=== PATIENT | female | born 1970 | race Caucasian/White ===

== ENCOUNTER → 2021-10-26 01:00 | Outpatient (CLI) | payer OTHER, SELFPAY ==
[2021-10-26 21:02] LABS: SARS-CoV-2 RNA PCR Positive
== END ==
PROVIDERS: PCP Family Medicine; Visit Provider Physician Assistant
DX: U07.1 COVID-19 (principal)
CPT/HCPCS: C9803; U0003; U0005

== ENCOUNTER 2021-10-27 15:38 | Emergency (ER) | payer SELFPAY ==
--- NOTE | 2021-10-27 16:07 | PC.NURSE ---
pt to the intake desk and states Im not going to stay . pt ambulated to the exit without difficulty
== END 2021-10-27 16:07 | disposition left against medical advice (07) ==
LOC: ANHED 16:21
PROVIDERS: PCP Family Medicine
DX: R06.02 Shortness of breath (principal)
CPT/HCPCS: 99199

== ENCOUNTER 2021-10-29 07:40 | Outpatient (RCR) | payer OTHER, SELFPAY ==
[2021-10-29 11:45] VITALS: BP 141/73; PULSE 70; RESP 20; TEMP 35.9; O2SAT 100
[2021-10-29] MEDS: diphenhydrAMINE HCl CAP 25 MG CAPSULE PO (11:53)
[2021-10-29] MEDS: FAMOTIDINE 20 MG TABLET PO (11:53)
[2021-10-29] MEDS: ACETAMINOPHEN 325 MG TABLET 650 MG PO (11:53)
[2021-10-29 13:13] VITALS: BP 130/74; PULSE 66; O2SAT 99
== END 2021-10-29 17:00 ==
LOC: AMCINF 07:40
PROVIDERS: PCP Family Medicine; Visit Provider Internal Medicine Hematology & Oncology
DX: U07.1 COVID-19 (principal); I10 Essential (primary) hypertension
CPT/HCPCS: A9270; M0245; Q0245

== ENCOUNTER 2021-11-09 14:13 | Emergency (ER) | payer OTHER, SELFPAY ==
--- NOTE | ~2021-11-09 | XR_ITS ---
EXAMINATION: XR chest 1V portable DATE: 11/09/2021 15:31 INDICATION: Shortness of breath. TECHNIQUE: A single frontal view of the chest was obtained. COMPARISON: Chest 2 views 04/06/2019 FINDINGS: There are airspace opacities in the lower lung zones. No pleural effusion or pneumothorax. The heart size is normal. IMPRESSION: 1. Airspace opacities in the lower lung zones similar to 04/06/2019, consistent with atelectasis/scarr ing versus pneumonia. Reviewed, dictated and finalized at location A. CHOOL HEAD TEACHER IMPRESSION: 1. Airspace opacities in the lower lung zones similar to 04/06/2019, consistent with atelectasis/scarring versus pneumonia.
[2021-11-09 14:19] VITALS: BP 147/82; PULSE 95; RESP 20; TEMP 36.3; O2SAT 100
[2021-11-09 14:50] VITALS: BP 138/80; PULSE 77; RESP 16; O2SAT 98
--- NOTE | 2021-11-09 15:29 | ED.GENADULT ---
HPI - General Adult General Chief complaint: Shortness of Breath/Dyspnea Stated complaint: sob, covid + 3 weeks ago Time Seen by Provider: 11/09/21 14:54 Source: patient and RN notes reviewed Limitations: no limitations History of Present Illness HPI narrative: 51-year-old female 3 weeks out from her Covid infection presents to the emergency department complaining of cough, shortness of breath, nausea vomiting and diarrhea. Patient states she had her Covid diagnosis approximately 3 weeks ago. Patient states after the first week she did have some minor improvement but states over the last 2 weeks she has had persistent and possibly worsening symptoms. She does complain of sinus pressure and headache. Patient does have nasal congestion. Patient also does complain of some shortness of breath today. Patient also does complain of some lower back pain worsened with movement. Patient does have nausea vomiting diarrhea but denies any associate abdominal pain. Patient denies any pain with urination. Patient denies any falls or injuries. Denies any frequent cough. Patient also denies any associated chest pain. Related Data Home Medications Medication Instructions Recorded Confirmed estradiol 2 mg 11/09/21 sertraline 100 mg DAILY 11/09/21 11/09/21 zolpidem 10 mg HS 11/09/21 Allergies Allergy/AdvReac Type Severity Reaction Status Date / Time No Known Allergies Allergy Verified 11/09/21 14:51 Review of Systems Review of Systems: CONSTITUTIONAL: Denies fever, chills, or sweats. EYES: Denies visual changes, redness, or discharge. ENT: Sinus pressure, nasal congestion and rhinorrhea CARDIOVASCULAR: Denies chest pain, palpitations, or edema. RESPIRATORY: Denies cough but did have some shortness of breath today.. GASTROINTESTINAL: Denies abdominal pain but does report some nausea vomiting and diarrhea GENITOURINARY: Denies dysuria or hematuria. SKIN: Denies rash or itching. MUSCULOSKELETAL: Lower back pain worsened with movement.. NEUROLOGIC: Denies headache, numbness, or weakness. Exam Narrative: APPEARANCE: Well appearing, no pain, no distress, well-nourished. HEAD: normocephalic, atraumatic. EYES: PERRLA/EOMI, conjunctivae clear. NOSE: Nasal and sinus congestion NECK: Supple. No adenopathy, no masses. RESPIRATORY: Airway patent, respirations nonlabored. Clear to auscultation bilaterally, no rales, rhonchi, wheezing. CARDIOVASCULAR: Regular rate and rhythm without murmurs rubs or gallops. ABDOMINAL: Soft, nontender, nondistended, normal bowel sounds, no CVA tenderness to palpation MUSCULOSKELETAL: Moves all extremities. Lower back tenderness to palpation. No step-offs or deformity. NEURO: Alert. Cranial nerves II through XII intact. SKIN: Warm, dry. Normal Color Course Course Emergency Course: Patient was updated on the results of her work-up including labs and imaging. All questions and concerns were addressed. Patient did feel improved with treatment in the emergency department. Patient was started on Augmentin for possible sinusitis. Vital Signs Vital signs: Vital Signs Temperature 97.4 F L 11/09/21 14:19 Pulse Rate 95 11/09/21 14:19 Respiratory Rate 20 11/09/21 14:19 Blood Pressure 147/82 H 11/09/21 14:19 Pulse Oximetry 100 11/09/21 14:19 Temperature 97.4 F L 11/09/21 14:19 Pulse Rate 84 11/09/21 16:46 Respiratory Rate 18 11/09/21 16:46 Blood Pressure 140/69 11/09/21 16:46 Pulse Oximetry 98 11/09/21 16:46 Medical Decision Making Vital Signs Vital Signs: Vital Signs Temperature 97.4 F L 11/09/21 14:19 Pulse Rate 95 11/09/21 14:19 Respiratory Rate 20 11/09/21 14:19 Blood Pressure 147/82 H 11/09/21 14:19 Pulse Oximetry 100 11/09/21 14:19 Temperature 97.4 F L 11/09/21 14:19 Pulse Rate 84 11/09/21 16:46 Respiratory Rate 18 11/09/21 16:46 Blood Pressure 140/69 11/09/21 16:46 Pulse Oximetry 98 11/09/21 16:46 Lab Data Lab results reviewed: Yes
[2021-11-09 16:19] LABS: Add Urine Microscopic? YES; Appearance Urine Clear (Clear); Bilirubin Urine Negative (Negative); Blood Urine Negative (Negative); Color Urine Yellow (Yellow); Glucose Urine UA Negative (Negative); Ketones Urine Negative (Negative); Leukocyte Esterase Ur Negative LEU/UL (Negative); Mucus Urine Rare /lpf; Nitrate Urine Negative (Negative); Protein Urine Negative (Negative); RBC Urine 0-2 /hpf (0-2); Specific Grav Ur 1.014 (1.001-1.035); Squamous Epithelial Cell Urine Occasional /hpf (Few); Urobilinogen Urine Negative mg/dL (<2.0); WBC Urine 0-3 /hpf
[2021-11-09] MEDS: AMOXICILLIN/CLAVULANATE K 875-125 MG TAB 1 TABLET PO (16:36)
[2021-11-09 16:46] VITALS: BP 140/69; PULSE 84; RESP 18; O2SAT 98
== END 2021-11-09 16:47 | disposition home or self-care (01) ==
PROVIDERS: Emergency Provider Emergency Medicine; PCP Family Medicine
DX: U07.1 COVID-19 (principal); R06.00 Dyspnea, unspecified; R09.81 Nasal congestion; M54.50 Low back pain, unspecified; R91.8 Other nonspecific abnormal finding of lung field
CPT/HCPCS: 71045; 81001; 99283; A9270

== ENCOUNTER → 2021-11-16 11:26 | Outpatient (CLI) | payer OTHER, SELFPAY ==
--- NOTE | ~2021-11-16 | XR_ITS ---
XR lumbar spine 2-3V DATE: 11/16/2021 11:50 INDICATION: Low back pain TECHNIQUE: AP, lateral, coned lateral lumbosacral views COMPARISON: None FINDINGS: There is diffuse osteopenia. Normal alignment of the lumbar spine. No fracture or bone destruction is evident. The included lower thoracic and lumbar pedicles are intact. There is severe degenerative disc disease at L5-S1. The lumbar interspaces otherwise are normally pre served. The sacroiliac joints are intact. Status post cholecystectomy IMPRESSION: Severe degenerative disc disease at L5-S1 Osteopenia Reviewed, dictated and finalized at location B. T ELECTRICIAN
== END ==
PROVIDERS: Visit Provider Physician Assistant
DX: M51.37 Other intervertebral disc degeneration, lumbosacral region (principal); M85.88 Other specified disorders of bone density and structure, other site
CPT/HCPCS: 72100

== ENCOUNTER 2021-11-29 15:19 | Outpatient (CLI) | payer OTHER, SELFPAY ==
--- NOTE | ~2021-11-29 | MR_ITS ---
EXAMINATION: MR lumbar spine wo con DATE: 11/29/2021 16:01 INDICATION: Lumbar spine disc degeneration. TECHNIQUE: Magnetic resonance imaging (MRI) of the lumbar spine was performed without intravenous con trast. Sequences included sagittal T2-weighted FSE, sagittal T2-weighted FS FSE, sagittal T1-weighted FSE, and axial T2-weighted FSE. COMPARISON: None FINDINGS: Alignment is normal. Vertebral body heights are normal. Moderate disc height loss with fibrofatty deg enerative endplate changes at L5-S1. Disc desiccation without disc height loss at L3-L4 and L4-L5. Ma rrow signal is otherwise normal. The conus medullaris terminates at L2. There is normal signal in the caudal spinal cord. Paravertebral soft tissues are unremarkable. The following disc levels are speci fically discussed: T12-L1: The disc does not extend beyond the endplate margin. There is mild bilateral facet joint oste oarthritis. There is no neural foraminal stenosis. There is no central canal stenosis. L1-L2: The disc does not extend beyond the endplate margin. There is mild bilateral facet joint osteo arthritis. There is no neural foraminal stenosis. There is no central canal stenosis. L2-L3: The disc does not extend beyond the endplate margin. There is mild bilateral facet joint osteo arthritis. There is no neural foraminal stenosis. There is no central canal stenosis. L3-L4: Disc is minimally bulging. There is moderate bilateral facet joint osteoarthritis. There is mi nimal bilateral neural foraminal stenosis. There is no central canal stenosis. L4-L5: Disc is mildly bulging. There is a 9 x 7 x 5 mm left paracentral extruded versus sequestered d isc fragment extending caudally from the disc space. There is moderate left and severe right facet tanvir int osteoarthritis. There is mild right and minimal left neural foraminal stenosis. There is mild ottoniel tral canal stenosis. There is also mild narrowing of the left lateral recess resulting from the extru ded versus sequestered disc fragment. L5-S1: Disc is mildly bulging. There is moderate left and severe right facet joint osteoarthritis. Th ere is mild bilateral neural foraminal stenosis. There is no central canal stenosis. IMPRESSION: 1. Moderate mid to lower lumbar spondylosis including a left paracentral extruded versus sequestered disc fragment just inferior to the L4-L5 disc space. Reviewed, dictated and finalized at location A. C.O.D. BILLER IMPRESSION: 1. Moderate mid to lower lumbar spondylosis including a left paracentral extrud ed versus sequestered disc fragment just inferior to the L4-L5 disc space.
== END 2021-11-29 15:20 ==
LOC: MICIMG 15:19
PROVIDERS: PCP Family Medicine; Visit Provider Family Medicine
DX: M51.36 Other intervertebral disc degeneration, lumbar region (principal); M47.896 Other spondylosis, lumbar region
CPT/HCPCS: 72148

== ENCOUNTER → 2021-12-13 12:22 | Outpatient (CLI) | payer OTHER, SELFPAY ==
--- NOTE | ~2021-12-13 | XR_ITS ---
XR knee LT min 4V DATE: 12/13/2021 12:38 INDICATION: Left knee pain TECHNIQUE: Standing AP, PA and lateral views. [place] view. COMPARISON: None FINDINGS: No fracture or dislocation or joint effusion. No periosteal reaction or bone destruction, r adiopaque intra-articular loose body or chondrocalcinosis. There is slight periarticular spurring of the patella and lateral femoral condyle, mild loss of media l compartment joint space. IMPRESSION: Mild osteoarthritis Reviewed, dictated and finalized at location A. CARDIOGRAPH TECH IMPRESSION: Mild osteoarthritis
== END ==
PROVIDERS: Visit Provider Pain Medicine Pain Medicine
DX: M17.12 Unilateral primary osteoarthritis, left knee (principal)
CPT/HCPCS: 73564

== ENCOUNTER 2023-09-28 20:15 | Emergency (ER) | payer OTHER, SELFPAY ==
[2023-09-28 20:21] VITALS: BP 137/88; PULSE 87; RESP 18; TEMP 36.3; O2SAT 98
== END 2023-09-28 21:25 | disposition left against medical advice (07) ==
LOC: ANHED 20:48
PROVIDERS: PCP Family Medicine
DX: R51.9 Headache, unspecified (principal)
CPT/HCPCS: 99199

== ENCOUNTER 2024-05-02 11:04 | Outpatient (CLI) | payer OTHER, SELFPAY ==
--- NOTE | ~2024-05-02 | XR_ITS ---
XR cervical spine 4-5V Ordering provider: Pritesh Carmichael MD History: . Cervical radiculopathy . Comparison: None. FINDINGS: VERTEBRAL BODIES: Normal height and alignment. No visible fracture or subluxation. The dens is intact . DISK SPACES: Narrowing of the disc C6-C7. Uncovertebral joint osteoarthritic changes at the same leve l. PARASPINOUS SOFT TISSUES: No prevertebral soft tissue swelling. IMPRESSION: No acute osseous abnormality cervical spine. Reviewed, dictated and finalized at location A.
== END 2024-05-02 11:05 ==
LOC: MICIMG 11:06
PROVIDERS: PCP Family Medicine; Visit Provider Pain Medicine Pain Medicine
DX: M54.12 Radiculopathy, cervical region (principal)
CPT/HCPCS: 72050

== ENCOUNTER 2024-05-14 13:26 | Outpatient (CLI) | payer OTHER, SELFPAY ==
--- NOTE | ~2024-05-14 | MR_ITS ---
MR cervical spine wo con Ordering provider: Kathi Avery, [employer]-C History: 54 years Female with . Cervical radiculopathy . Comparison: None. Technique: MRI cervical spine without contrast. FINDINGS: CERVICAL SPINAL CORD/CRANIAL CERVICAL JUNCTION: Bright signal is seen on T2 weighted images at the le elvia of C5, and C6 which is suggestive of myelomalacia. CERVICAL VERTEBRAL BODIES: Normal height and alignment. Normal marrow signal. DISK SPACES: Narrowing of the disc C5-C6, C6-C7 and C6-C7. C2-C3: No stenosis. C3-C4: No stenosis. C4-C5: No stenosis. C5-C6: Mild spinal canal stenosis secondary to broad based disc bulge. Narrowing of the left foramen with root compression. C6-C7: No stenosis. C7-T1: No stenosis. VISUALIZED PARASPINOUS SOFT TISSUES: Normal. IMPRESSION: 1. No acute osseous abnormality. 2. Highly suggestive of myelomalacia at the level of C5-C6. Reviewed, dictated and finalized at location A.
== END 2024-05-14 13:27 ==
LOC: GOSHIMG 13:27
PROVIDERS: PCP Family Medicine; Visit Provider Nurse Practitioner Family
DX: M54.12 Radiculopathy, cervical region (principal)
CPT/HCPCS: 72141

== ENCOUNTER 2024-06-03 12:51 | Outpatient (CLI) | payer OTHER, SELFPAY ==
--- NOTE | ~2024-06-03 | MR_ITS ---
EXAMINATION: MR lumbar spine wo con DATE: 06/03/2024 13:23 INDICATION: Lumbar radiculopathy. Lower back pain. TECHNIQUE: Magnetic resonance imaging (MRI) of the lumbar spine was performed without intravenous con trast. Sequences included sagittal T2-weighted FSE, sagittal T2-weighted FS FSE, sagittal T1-weighted FSE, and axial T2-weighted FSE. COMPARISON: Lumbar spine MRI 11/29/2021 FINDINGS: There is 4 degrees levocurvature of lumbar spine. Vertebral body heights are normal. There is severely decreased disc height at L5-S1. The distal spinal cord signal intensity is normal. The co nus medullaris is at L1-L2. The following disc levels are specifically discussed: L1-L2: The disc does not extend beyond the endplate margin. There is mild bilateral facet joint osteo arthritis. There is no neural foraminal stenosis. There is no central canal stenosis. L2-L3: The disc does not extend beyond the endplate margin. There is mild right and moderate left fac et joint osteoarthritis. There is no neural foraminal stenosis. There is no central canal stenosis. L3-L4: There is a right foraminal protrusion. There is moderate bilateral facet joint osteoarthritis. There is mild right neural foraminal stenosis. There is no central canal stenosis. L4-L5: The disc is bulging. There is moderate bilateral facet joint osteoarthritis. There is mild beti ateral neural foraminal stenosis. There is no central canal stenosis. L5-S1: The disc is bulging and has an annular fissure. There is severe bilateral facet joint osteoart hritis. There is mild lateral neural foraminal stenosis. There is no central canal stenosis. IMPRESSION: 1. Severe lower lumbar spondylosis, stable from 11/29/2021. Reviewed, dictated and finalized at location A.
== END 2024-06-03 12:52 ==
LOC: GOSHIMG 12:53
PROVIDERS: PCP Family Medicine; Visit Provider Nurse Practitioner Family
DX: M47.26 Other spondylosis with radiculopathy, lumbar region (principal)
CPT/HCPCS: 72148

== ENCOUNTER 2024-08-28 10:11 | Emergency (ER) | payer OTHER, SELFPAY ==
[2024-08-28 10:19] VITALS: BP 134/80; PULSE 69; RESP 16; TEMP 36.5; O2SAT 99
--- NOTE | 2024-08-28 10:43 | ED_ITS ---
HPI - Headache General Chief Complaint: Headache Stated Complaint: pain on right side of head Time Seen by Provider: 08/28/24 10:43 Source: patient and RN notes reviewed Mode of arrival: ambulatory Limitations: no limitations History of Present Illness HPI Narrative: 54 y/o female with hx HTN presented for c/o right temporal headache for 6 months. Pain is also behind the right ear. States she has had workup with neurologist, pain management, MRI, chiropractor and receives injections in the cervical spine. She is due for injection in 2 weeks. Denies vision changes, pain radiating to forehead or jaw, ear pain, rash to the site, nausea or fever, numbness or tingling of the face. Pain is described as constant and ache, nothing relieves the pain. Says she started taking a steroid about 5 days ago. Related Data Home Medications Medication Instructions Recorded Confirmed cholecalciferol (vitamin D3) 25 25 mcg PO DAILY 07/01/24 07/01/24 mcg (1,000 unit) capsule Allergies Allergy/AdvReac Type Severity Reaction Status Date / Time amoxicillin [From Augmentin] AdvReac Hives Verified 08/28/24 10:27 clavulanic acid AdvReac Itching Verified 08/28/24 10:27 [From Augmentin] Review of Systems Review of Systems: CONSTITUTIONAL: Denies body aches, fever, chills, or sweats. EYES: Denies visual changes, redness, photophobia or discharge. ENT: Denies rhinorrhea, congestion, sore throat, or otalgia. CARDIOVASCULAR: Denies chest pain, palpitations, or edema. RESPIRATORY: Denies cough or dyspnea. GASTROINTESTINAL: Denies abdominal pain, nausea, vomiting, or diarrhea. SKIN: Denies rash or wounds MUSCULOSKELETAL: Denies back pain, joint pain, or myalgia. NEUROLOGIC: Endorses headache, denies numbness, tingling, weakness, dizziness All systems reviewed & are unremarkable except as noted in HPI and below PMFSH Past Medical History Medical History Anxiety Depression Essential (primary) hypertension GERD (gastroesophageal reflux disease) Mixed hyperlipidemia Nicotine dependence, cigarettes, uncomplicated Prediabetes Recurrent herpes labialis Surgical History Surgical History History of appendectomy 2005 History of section 1989 History of cholecystectomy 11/17/2015 History of endometrial ablation 2003 History of nasal surgery 2004 History of partial hysterectomy 2005 History of rectal surgery anal fissure repair 2010 History of toe surgery 2004, 2007 Family History Family History Father Diabetes mellitus Heart disease Liver cancer Mother Diabetes mellitus Hypertension Heart disease Breast cancer Depression Grandparent Heart disease Hypertension COPD (chronic obstructive pulmonary disease) Social History Social History Smoking packs per day: 1 Smoking cigarettes per day: 20.0 Smoking status: Current every day smoker Tobacco type: cigarettes Alcohol intake: never Substance use: never Substance use type: does not use Do You Feel Safe in your Home?: Yes Lack of Transportation: No Lack of Food: Never True Current Housing: I Have Housing Concerned About Future Housing: No Difficulty Paying Gas/Electric Bills: No Difficulty Paying for Meds: No Currently Unemployed: No Education: High School Diploma/GED Difficulty w/ Childcare or Family Care: No Living arrangements: with family Occupation/Education: occupation Gender identity (if verbalized by the patient): Female Sexual Orientation (if Verbalized by the Patient): Straight or Heterosexual Comments At time of signature, I have reviewed and agree with nursing past medical, surgical, social and family history unless otherwise noted. Please see nursing chart for further information. There is no relevant family history pertinent to the presenting complaint Exam Narrative: GENERAL: Well-appearing HEAD: Normocephalic, atraumatic. EYES: PERRLA, EOMI. ENT: Mucous membranes pink and moist. No rhinorrhea. TMs normal bilaterally. Right TMJ with mild clicking and subjective tenderness with palpation. No trismus. NECK: Normal AROM. no VPT CHEST: No respiratory distress. Clear to auscultation. HEART: Regular rate and rhythm. No murmur appreciated. Normal peripheral pulses. ABDOMEN: Soft, nontender, nondistended, normal active bowel sounds. SKIN: Warm, dry, no rash. Capillary refill normal. Normal skin turgor. NEURO: No focal deficits. Alert and oriented x3. EOMs intact without nystagmus. No facial droop/asymmetry noted bilaterally. Grimace intact. Intact sensation in face. Hearing intact bilaterally. Shoulder shrug intact. Ambulatory exam with a normal based, steady gait. PSYCH: Appears irritable/anxious Course Course Emergency Course: Patient is aware of diagnosis, understands and agrees to treatment plan. Anticipatory guidance given. Patient agrees to follow-up as directed and is aware of reasons to seek care at the emergency department. Portions of this record may have been created with voice recognition software Level of Care: Express Care Visit Vital Signs Vital signs: Vital Signs Temperature 97.7 F 08/28/24 10:19 Pulse Rate 69 08/28/24 10:19 Respiratory Rate 16 08/28/24 10:19 Blood Pressure 134/80 08/28/24 10:19 Pulse Oximetry 99 08/28/24 10:19 Temperature 97.7 F 08/28/24 10:19 Pulse Rate 69 08/28/24 10:19 Respiratory Rate 16 08/28/24 10:19 Blood Pressure 134/80 08/28/24 10:19 Pulse Oximetry 99 08/28/24 10:19 MDM - Headache MDM Narrative Medical decision making narrative: The patient presents with a chronic headache for 6 months in duration to right pentecostal/TMJ area. There Is Not a history of anticoagulation, trauma, , cancer or immunocompromised state. Mental status is normal, no neurological deficits were noted. Reports multiple workups including that of MRI and neurology, pain management and PCP. Recommendations were given for follow-up with PCP in 1-2 days and to go to the ED for worsening of headache or any other concerns Based on the patient's history and physical there is very low clinical suspicion for significant intracranial pathology at this time. Advised Rx steroid to cover possible GCA even though she has had extensive work up, and muscle relaxer at this time; Pt declined Rx steroid stating she is finishing one but did not know the name or dose, and says she has muscle relaxer at home. Discussed physical exam findings. Pt appeared irritable, stating again no answers, Advised follow with specialists, Advised supportive measures and signs/symptoms to go to the ER. Pt is appropriate for outpt treatment and f/u. Differential Diagnosis Differential diagnosis: Likely migraine, tension headache, subarachnoid hemorrhage, headache, meningitis, sinusitis and other (Migraine, tension-type headache, cluster headache, concussion, seizure, meningitis, encephalitis, neurosyphilis, SAH, subdural hematoma, brain tumor, hypertensive encephalopathy, brain abscess, multiple sclerosis, hemorrhagic stroke, Wernickes encephalopathy, giant cell arteritis, drug toxicity?) Discharge Plan Discharge Clinical Impression: Right sided temporal headache Patient Disposition: Home, Self-Care Condition: Stable Instructions: Antibiotic Form, Temporomandibular Disorder (ED) Additional Instructions: May apply heat or ice to the face Alternate Tylenol and ibuprofen as needed for pain Avoid these things which may result in more jaw pain: - Yawning or yelling - Crunchy or hard foods - Taking large bites of food - Foods that require prolonged chewing - Chewing gum - ?Nail biting - Chewing cheeks and lips - Resting your jaw in your hand - Clenching or grinding your teeth - Clenching jaw muscles pushing the tongue against your teeth Follow-up with and oral surgeon or ENT Follow up with your pcp, call today to schedule an appointment Go to the ER for worsening symptoms or concerns Prescriptions: No Action cholecalciferol (vitamin D3) 25 mcg (1,000 unit) capsule 25 mcg PO DAILY losartan-hydrochlorothiazide 50-12.5 mg tablet 1 tablet PO DAILY Qty: 90 1RF estradiol 2 mg tablet 2 mg PO DAILY Qty: 90 1RF celecoxib 200 mg capsule 200 mg PO DAILY Qty: 90 1RF sertraline 100 mg tablet 150 mg PO DAILY 90 Days Qty: 135 1RF hydrochlorothiazide 25 mg tablet See Rx Instructions .ROUTE .COMPLEX Qty: 90 1RF Dose Instruction: TAKE ONE TABLET BY MOUTH EVERY MORNING Rx Instructions: TAKE ONE TABLET BY MOUTH EVERY MORNING omeprazole 20 mg capsule,delayed release(DR/EC) See Rx Instructions .ROUTE .COMPLEX Qty: 90 3RF Dose Instruction: TAKE 1 CAPSULE BY MOUTH ONCE A DAY 30 MINUTES BEFORE MORNING MEAL Rx Instructions: TAKE 1 CAPSULE BY MOUTH ONCE A DAY 30 MINUTES BEFORE MORNING MEAL zolpidem 10 mg tablet 10 mg PO QHS PRN (Reason: insomnia) Qty: 30 2RF clindamycin HCl 300 mg capsule 300 mg PO TID Qty: 30 0RF Follow-up/Referrals: Ryley Ellington MD [Physician] - Luis Antonio Cruz MD [Primary Care Provider] - [place] Coma Scale Verbal: Oriented and Alert Motor: Follows Commands Acute Stroke Pre-Treatment Evaluation Acute Ischemic Stroke Pretreatment Evaluation: Acute Ischemic Stroke Pre- Treatment Evaluation Inclusion Criteria (must answer yes to questions 1 and 2) 1. Age 18 Years Or Older: No 2. Onset Of Stroke Symptoms Well Established To Be Less Than 3 Hours: No 3. Clinical Diagnosis Of Ischemic Stroke Causing Measureable Neurological Deficit And A Non-Contrast Head CT Showing NO Hemorrage: No Contraindications (0-3 Hours) 5. Stroke Or Severe Head Trauma Within Past 3 Months: No 6. Known History Of Intracranial Hemorrage: No 7. Symptoms Or Clinical Presentation Suggestion Of Subarachnoid hemorrhage: No 8. Gastrointestinal Or Urinary Tract hemorrhage Within 21 Days: No 9. Prothrombin Time (TP) Greater Than 15 Seconds or An INR Greater Than 1.7 Or An Elevated Activated Partial Throboplastin Time (aPTT): No 10. Platelet Count <100,000/ml: No 11. Glucose Lower Than 50mg/dl Or Greater than 400mg/dl: No 12. Seizure At Onset Stroke: No 13. Acute Myocardial Infarction Or Post Myocardial Infarction Pericarditis: No 14. Arterial Puncture At A Non-Compressible Site, Biopsy of Internal Organ, Within The Preceding 7 Days: No 15. Major Surgery Or Serious Trauma (Besides Head) In The Previous 14 Days: No 16. Uncontrolled Or Sustained SBP (systolic>185 mmHg) or DBP (diastolic>110 mmHg) Or Requiring Aggressive Treatment To Lower: No 17. : No Contraindications (3-4.5 Hours) 1. Age Less Than 18 or Greater Than 80 years: No 2. Severe Stroke Assessed Clinically (NIHSS Score Greater Than 25): No 3. Combination Or Previous Stroke Or Diabetes Mellitus: No 4. Symptoms Minor Or Rapidly Improving: No
== END 2024-08-28 11:02 | disposition home or self-care (01) ==
PROVIDERS: Emergency Provider Nurse Practitioner Family; PCP Family Medicine
DX: R51.9 Headache, unspecified (principal); F17.210 Nicotine dependence, cigarettes, uncomplicated; I10 Essential (primary) hypertension; K21.9 Gastro-esophageal reflux disease without esophagitis; E78.2 Mixed hyperlipidemia; R73.03 Prediabetes
CPT/HCPCS: 99213; G0463

== ENCOUNTER 2024-10-13 15:36 | Emergency (ER) | payer OTHER, SELFPAY ==
[2024-10-13 15:57] VITALS: BP 139/78; PULSE 153; RESP 16; TEMP 37.2; O2SAT 97
[2024-10-13 17:00] VITALS: PULSE 80
--- NOTE | 2024-10-13 17:20 | ED_ITS ---
HPI - URI/Sore Throat General Chief Complaint: Upper Respiratory Infection Stated Complaint: Sinus Infection Symptoms Time Seen by Provider: 10/13/24 17:09 Source: patient and RN notes reviewed Mode of arrival: ambulatory Limitations: no limitations History of Present Illness HPI Narrative: Patient presents today complaining of 4 day history of cough, subjective fever, body aches, sweats, nasal congestion, rhinorrhea. She has also had watery diarrhea up to 4 times per day. Denies shortness of breath or abdominal pain. No blood or mucus in the stool. She has been taking ibuprofen and Delsym without much relief. No history of asthma or COPD. States prior to onset of symptoms, patient was exposed to a grandchild that was diagnosed with pneumonia. Related Data Home Medications ?Medication ?Instructions ?Recorded ?Confirmed ?Last Taken ?Type cholecalciferol (vitamin D3) 25 25 mcg PO DAILY 07/01/24 10/13/24 Unknown History mcg (1,000 unit) capsule Allergies Allergy/AdvReac Type Severity Reaction Status Date / Time amoxicillin (From Augmentin) AdvReac Hives Verified 10/13/24 15:53 clavulanic acid (From AdvReac Itching Verified 10/13/24 15:53 Augmentin) Review of Systems Review of Systems: CONSTITUTIONAL: Denies chills.+ subjective fever, sweats, body aches EYES: Denies visual changes, redness, or discharge. ENT: Denies sore throat, or otalgia.+ rhinorrhea, congestion CARDIOVASCULAR: Denies chest pain, palpitations, or edema. RESPIRATORY: Denies dyspnea.+ cough GASTROINTESTINAL: Denies abdominal pain, nausea, vomiting.+ diarrhea GENITOURINARY: Denies dysuria or hematuria. SKIN: Denies rash, itching, or wounds. MUSCULOSKELETAL: Denies back pain, joint pain, or myalgia. NEUROLOGIC: Denies headache, numbness, tingling, or weakness. PSYCH: Denies depression or anxiety. [facility] Past Medical History Medical History Nicotine dependence, cigarettes, uncomplicated Prediabetes Mixed hyperlipidemia Essential (primary) hypertension Recurrent herpes labialis Depression Anxiety GERD (gastroesophageal reflux disease) Surgical History Surgical History History of cholecystectomy 11/17/2015 History of rectal surgery anal fissure repair 2011 History of toe surgery 2004, 2008 History of partial hysterectomy 2006 History of appendectomy 2006 History of nasal surgery 2004 History of endometrial ablation 2003 History of section 1989 Family History Family History Father Diabetes mellitus Heart disease Liver cancer Mother Diabetes mellitus Hypertension Heart disease Breast cancer Depression Grandparent Heart disease Hypertension COPD (chronic obstructive pulmonary disease) Social History Social History Smoking packs per day: 1 Smoking cigarettes per day: 20.0 Smoking status: Current every day smoker Tobacco type: cigarettes Alcohol intake: never Substance use: never Substance use type: does not use Do You Feel Safe in your Home?: Yes Lack of Transportation: No Lack of Food: Never True Current Housing: I Have Housing Concerned About Future Housing: No Difficulty Paying Gas/Electric Bills: No Difficulty Paying for Meds: No Currently Unemployed: No Education: High School Diploma/GED Difficulty w/ Childcare or Family Care: No Living arrangements: with family Occupation/Education: occupation Gender identity (if verbalized by the patient): Female Sexual Orientation (if Verbalized by the Patient): Straight or Heterosexual Comments At time of signature, I have reviewed and agree with nursing past medical, surgical, social and family history unless otherwise noted. Please see nursing chart for further information. There is no relevant family history pertinent to the presenting complaint Exam Narrative: GENERAL: Mildly ill-appearing, well-nourished, and in no acute distress. HEAD: Normocephalic, atraumatic. EYES: EOMI. No redness or drainage. Conjunctivae normal. ENT: Mucous membranes pink and moist. Nares clear. No rhinorrhea. TMs normal bilaterally. Throat normal. Uvula midline. NECK: Normal AROM. Supple. No lymphadenopathy. CHEST: No respiratory distress. Clear to auscultation. HEART: Regular rate and rhythm. No murmur appreciated. EXTREMITIES: Normal range of motion. No edema. SKIN: Warm, dry, no rash. Capillary refill normal. Normal skin turgor. NEURO: No focal deficits. Alert and oriented x3. Gait steady. PSYCH: Normal affect. No signs of depression or anxiety. Course Course Level of Care: Express Care Visit Vital Signs Vital signs: Vital Signs Temperature 98.9 F 10/13/24 15:57 Pulse Rate 153 H 10/13/24 15:57 Respiratory Rate 16 10/13/24 15:57 Blood Pressure 139/78 10/13/24 15:57 Pulse Oximetry 97 10/13/24 15:57 Temperature 98.9 F 10/13/24 15:57 Pulse Rate 80 10/13/24 17:00 Respiratory Rate 16 10/13/24 15:57 Blood Pressure 139/78 10/13/24 15:57 Pulse Oximetry 97 10/13/24 15:57 Reviewed. Recheck of patient's heart rate during exam was 80 via auscultation and palpation of radial pulse. MDM - URI/Sore Throat MDM Narrative Medical decision making narrative: Influenza and COVID-19 negative. Symptoms likely viral in etiology. Discussed [id number] medication use and duration of illness. Declines prescription for cough medicine. Anticipatory guidance given. Differential Diagnosis Differential diagnosis: Likely upper respiratory infection, viral infection, influenza and other (COVID-19) Lab Data Attestation: I reviewed the patient's lab results. Labs: Lab Results 10/13/24 Range/Units 16:20 POC Influenza A Ag Negative (Negative) POC Influenza B Ag Negative (Negative) POC SARS CoV-2 Ag Negative (Negative) Critical Care Time Critical Care Time Critical Care Time: No Discharge Plan Discharge Clinical Impression: Viral syndrome Patient Disposition: Home, Self-Care Condition: Stable Instructions: Acute Diarrhea (ED), Viral Syndrome (ED) Additional Instructions: Your COVID-19 and influenza swabs are negative today. Virus symptoms can last for up to 7-10days. Take Tylenol or ibuprofen for pain or fever. Rest and stay hydrated. Follow up with your PCP in 7 days if symptoms are not improving. Go to the ER immediately if you develop shortness of breath, difficulty swallowing, persistent fever, or any other concerning symptoms. Your blood pressure was elevated above 120/80 today at Urgent Care. This puts you above the threshold for follow up. Please schedule a followup visit with your personal physician as soon as possible, for further evaluation and treatment. Even blood pressure exceeding 120/80 may indicate pre-hypertension. Patient Language: Ghanaian Prescriptions: No Action cholecalciferol (vitamin D3) 25 mcg (1,000 unit) capsule 25 mcg PO DAILY losartan-hydrochlorothiazide 50-12.5 mg tablet 1 tablet PO DAILY Qty: 90 1RF celecoxib 200 mg capsule 200 mg PO DAILY Qty: 90 1RF sertraline 100 mg tablet 150 mg PO DAILY 90 Days Qty: 135 1RF omeprazole 20 mg capsule,delayed release(DR/EC) See Rx Instructions .ROUTE .COMPLEX Qty: 90 3RF Dose Instruction: TAKE 1 CAPSULE BY MOUTH ONCE A DAY 30 MINUTES BEFORE MORNING MEAL Rx Instructions: TAKE 1 CAPSULE BY MOUTH ONCE A DAY 30 MINUTES BEFORE MORNING MEAL zolpidem 10 mg tablet 10 mg PO QHS PRN (Reason: insomnia) Qty: 30 2RF estradiol 2 mg tablet 2 mg PO DAILY Qty: 90 1RF Follow-up/Referrals: Luis Antonio Cruz MD [Primary Care Provider] - Stand Alone Forms: Work/School Release IP Time of Disposition: 17:22
[2024-10-13 17:49] LABS: EDCOVIDSCREEN Negative (Negative); EDINFLUASCREEN Negative (Negative); EDINFLUBSCREEN Negative (Negative)
== END 2024-10-13 17:26 | disposition home or self-care (01) ==
PROVIDERS: Emergency Provider Nurse Practitioner; PCP Family Medicine
DX: B34.9 Viral infection, unspecified (principal); Z20.822 Contact with and (suspected) exposure to COVID-19; F17.210 Nicotine dependence, cigarettes, uncomplicated; I10 Essential (primary) hypertension; E78.2 Mixed hyperlipidemia; K21.9 Gastro-esophageal reflux disease without esophagitis; R73.03 Prediabetes
CPT/HCPCS: 87426; 87804; 99212; G0463

== ENCOUNTER 2024-11-28 17:13 | Emergency (ER) | payer OTHER, SELFPAY ==
--- NOTE | ~2024-11-28 | CT_ITS ---
History: Fall PROCEDURE: CT cervical spine and facial bones without intravenous contrast. COMPARISON: None TECHNIQUE: Multiple contiguous axial images of the cervical spine and facial bones were performed without the ad ministration of intravenous contrast. DLP: 465 mGy-cm FINDINGS: Straightening and slight reversal of the normal curvature of the cervical spine is identified, likely muscular in origin. No acute fractures are present. The bilateral lung apices are unremarkable. No soft tissue abnormality is present. The airway is patent. Within the facial bones: Acute minimally displaced fracture of the frontal process of the right nasal bone is identified. The nasal septum is deviated towards the patient's right side with a prominent nasal spur. Mucoperios teal thickening within the bilateral ethmoid and right maxillary sinuses. The frontal and sphenoid si nuses are unremarkable. Impression: Straightening and slight reversal of the normal curvature of the cervical spine, likely muscular in o rigin. No acute fracture within the cervical spine. Acute minimally displaced fracture of the frontal process of the right nasal bone. Nasal septal deviation with a prominent nasal spur. Inflammatory sinus disease. Reviewed, dictated and finalized at location A. [employer] ANALYST Impression: Straightening and slight reversal of the normal curvature of the cervical spine , likely muscular in origin. No acute fracture within the cervical spine. Acute minimally displaced fracture of the frontal process of the right nasal renetta ne. Nasal septal deviation with a prominent nasal spur. Inflammatory sinus disease.
--- NOTE | ~2024-11-28 | XR_ITS ---
HISTORY: fall down stairs, pain COMPARISON: None TECHNIQUE: 4 views of the left knee were performed FINDINGS: No acute or subacute fracture. Medial tibiofemoral joint space narrowing is identified. No suprapatellar joint effusion is identified. The infrapatellar joint space is clear. IMPRESSION: No acute fracture or dislocation. Reviewed, dictated and finalized at location A. TORING TECH
--- NOTE | ~2024-11-28 | XR_ITS ---
HISTORY: fall down stairs, pain COMPARISON: None TECHNIQUE: 2 views of the right humerus were performed. FINDINGS: No acute or subacute fracture. Joint spaces are preserved and alignment is maintained. Soft tissues are unremarkable without radiopaque foreign body or significant calcification. Age-appropriate mineralization. IMPRESSION: No acute fracture or dislocation. Reviewed, dictated and finalized at location A. LIZER
--- NOTE | ~2024-11-28 | CT_ITS ---
CLINICAL INDICATION: Fall COMPARISON: None. TECHNIQUE: An enhanced CT of the chest, abdomen, pelvis, thoracic and lumbar spine was performed util izing multislice spiral technique reconstructed at 5 mm slice thickness. Coronal and sagittal recons tructions were performed. This CT examination was performed utilizing dose reduction techniques. DLP: 1665 mGy-cm FINDINGS/OBSERVATIONS: Lung: The lungs are clear. The heart is of normal size, without pericardial effusion. Mediastinum: No pathologically enlarged or morphologically suspicious lymph nodes are identified within the spinal , bilateral axilla, within the soft tissues of the anterior chest wall. Soft tissues of the chest: Unremarkable. Bones of the chest: No acute rib, sternum or scapular fracture. No lytic or blastic lesions are identified. Liver: The liver enhances homogeneously and is not enlarged measuring 16 cm in longitudinal dimension. Gallbladder and biliary system: The gallbladder is surgically absent. Pancreas: The pancreas enhances homogeneously, without ductal dilatation. Spleen: The spleen enhances homogeneously and is not enlarged measuring 10 cm in longitudinal dimensi on. Kidneys: The bilateral kidneys enhance symmetrically without hydronephrosis or renal calculi. Adrenal glands: Unremarkable. Gastrointestinal tract: Small hiatal hernia is present. Fecal stasis within the colon. Appendix: The appendix is surgically absent. Vasculature: No calcified atherosclerotic disease is present. No aneurysmal dilatation. Lymph nodes: Scattered nonpathologically enlarged lymph nodes within the root of the mesentery and deep in the pel vis. Pelvic structures: The bladder is distended and otherwise unremarkable. The uterus is anteverted and retroflexed. Body wall and musculoskeletal: Small fat-containing umbilical hernia. Degenerative disease within the lumbosacral spine (at the level of L5/S1) with osteophyte formation, disc space narrowing, endplate changes and vacuum phenomena. No degenerative disease is identified within the thoracic spine. No acute or subacute fracture is det ected within the thoracolumbar spine. IMPRESSION: No findings within the chest, abdomen, pelvis, thoracic or lumbar spines to suggest the presence of a cute traumatic injury, as detailed above. Reviewed, dictated and finalized at location A. ER CRAB IMPRESSION: No findings within the chest, abdomen, pelvis, thoracic or lumbar spines to sug gest the presence of acute traumatic injury, as detailed above.
--- NOTE | ~2024-11-28 | CT_ITS ---
History: Fall PROCEDURE: CT head without contrast. COMPARISON: None TECHNIQUE: Axial imaging of the head performed from the skull base to the vertex without IV contrast. Sagittal a nd coronal reformations obtained. DLP: 605 mGy-cm FINDINGS: The ventricles are normal in size, shape and position. There is no mass, mass effect or midline shift. There is no abnormal extra-axial fluid collection or intracranial hemorrhage. Mucoperiosteal thickening within the bilateral ethmoid sinuses. Mucoperiosteal thickening within the right maxillary sinus. Acute minimally displaced right nasal bone fracture. The mastoid air cells are well aerated. No acute displaced fractures within the overlying cranium. Impression: No acute intracranial hemorrhage or suspicious mass effect. Inflammatory sinus disease. Acute minimally displaced right nasal bone fracture. Reviewed, dictated and finalized at location A. LOGGER Impression: No acute intracranial hemorrhage or suspicious mass effect. Inflammatory sinus disease. Acute minimally displaced right nasal bone fracture.
[2024-11-28 17:12] VITALS: BP 154/86; PULSE 79; RESP 16; TEMP 36.6; O2SAT 98
--- OUTSIDE RECORDS SUMMARY | 2024-11-28 17:33 | XMS_ITS | Clinical Summary ---
Author Organization [facility] [address] Address [address] [place] [address] Care Team Providers Care Clinical Project Leader Name Role Phone Maryuri Doherty Primary Care Provider [phone] Allergies No known active allergies Medications meloxicam (MOBIC) 15 mg tablet Take 1 tablet (15 mg total) by mouth daily 30 tablet 05/29/2024 05/29/20 25 Active lidocaine (LIDODERM) 5 % Place 1 patch on the skin daily Remove & discard patch within 12 hours or as directed by MD. 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 Surgical History Surgery Date Site/Laterality Comments ID DILATION & CURETTAGE DX&/ THER NONOBSTETRIC Dilation And Curettage - (Added by TW Conv) ROBOTIC ASSISTED HYSTERECTOMY Hysterectomy Robotic-Assisted - (Added by TW Conv) ID APPENDECTOMY Appendectomy - (Added by TW Conv) FOOT SURGERY Foot Surgery - (Added by TW Conv) Family History Medical History Relation Name Comments Cancer Father Family history of malignant neoplasm - (Added by TW Conv) Diabetes Father Family history of diabetes mellitus - (Added by TW Conv) Diabetes Mother Family history of diabetes mellitus - (Added by TW Conv) Relation Name Status Comments Father Mother Social History Tobacco Use Types Packs/Day Years Used Date Smoking Tobacco: Never Assessed Personal Safety Answer Date Recorded Have you ever been in or are you currently in a harmful physical or emotional relationship or is someone making you feel afraid or unsafe? 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 Gender Identity Not on file Sexual Orientation Not on file Obstetrics History Last Filed Vital Signs Vital Sign Reading Time Taken Comments Blood Pressure 156/86 05/29/2024 3:21 PM CDT Pulse 81 05/29/2024 3:21 PM CDT Temperature 36.4 C (97.6 F) 05/29/2024 12:59 PM CDT Respiratory Rate 18 05/29/2024 3:21 PM CDT Oxygen Saturation 98% 05/29/2024 3:21 PM CDT Inhaled Oxygen Concentration - - Weight 93 kg (205 lb) 05/29/2024 12:59 PM CDT Height 167.6 cm (5' 6 ) 05/29/2024 12:59 PM CDT Body Mass Index 33.09 05/29/2024 12:59 PM CDT Plan of Treatment Health Maintenance Due Date Last Done Comments Breast Cancer Screening-Mammogram 1968 Cervical Cancer Screening 1968 Colon Cancer Screening-Colonoscopy 1968 Depression Screening 1968 Hepatitis C Screening 1968 DTaP/Tdap/Td Vaccine (1 - Tdap) 02/01/1979 Hepatitis B Screening 02/01/1986 Regular Well Visit/Exam 18-64 02/01/1986 Zoster Vaccine (1 of 2) 02/01/2018 Influenza Vaccine (#1) 2024 Pneumococcal vaccine <65 Aged Out No longer eligible based on patient's age to complete [place] [address] [facility] PLUS [facility] CHOICE PLUS Care Teams Clinical Project Leader Relationship Specialty Start Date End Date Maryuri Doherty PA [address] [place], [place] [id number] PCP - General 12/27/18
--- OUTSIDE RECORDS SUMMARY | 2024-11-28 17:33 | XMS_ITS | Referral Summary ---
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
--- OUTSIDE RECORDS SUMMARY | 2024-11-28 17:33 | XMS_ITS | Clinical Summary ---
Author Organization [facility] Address [address] [place] [id number] Care Team Providers Care [employer] Sheets Supervisor Name Role Phone Luis Antonio Cruz MD Primary Care Provider [phone] Allergies Active Allergy Reactions Criticality Noted Date Comments Amoxicillin Rash Low 10/01/2023 Medications methylPREDNISol one, RUFINO, (MEDROL) 4 MG tablet Take 1 tablet (4 mg total) by mouth daily. 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 Gender Identity Not on file Sexual Orientation Not on file Last Filed Vital Signs Vital Sign Reading Time Taken Comments Blood Pressure 141/64 10/01/2023 10:30 PM SUMATRA OPENER Pulse 85 10/01/2023 9:05 PM SUMATRA OPENER Temperature 36.8 C (98.2 F) 10/01/2023 9:05 PM SUMATRA OPENER Respiratory Rate 20 10/01/2023 9:05 PM SUMATRA OPENER Oxygen Saturation 96% 10/01/2023 10:30 PM SUMATRA OPENER Inhaled Oxygen Concentration - - Weight 93.6 kg (206 lb 5.6 oz) 10/01/2023 9:05 P M SUMATRA OPENER Height 167.6 cm (5' 6 ) 10/01/2023 9:05 PM SUMATRA OPENER Body Mass Index 33.31 10/01/2023 9:05 PM SUMATRA OPENER Plan of Treatment Health Maintenance Due Date Last Done Comments Cervical Cancer Screening Pa p Smear (Age 30 to 64) Every 3 Years 1968 Colorectal Cancer Screening Colonoscopy (10 Years) 1968 Annual Physical 02/01/1971 Hepatitis C 02/01/1986 DTaP, Tdap and Td Vaccines ( 1 - Tdap) 02/01/1987 Hepatitis B Vaccines (1 of 3 - 19+ 3-dose series) 02/01/1987 Cervical Cancer Screening Pa p with HPV Testing (Age 30 to 64) Every 5 Years 02/01/1998 Cervical Cancer Screening with HPV 02/01/1998 Mammogram Screening 2008 Zoster Vaccines (1 of 2) 02/01/2018 COVID-19 Vaccine (2023-2 5 season) 2024 Influenza Adult (#1) 2024 Meningococcal B Vaccine Aged Out No l onger eligible based on patient's age to complete this topic Meningococcal Vaccine Aged Out No claudio bert eligible based on patient's age to complete this topic Pneumococcal Vaccine: Pediat rics (0 to 5 Years) and At-Risk Patients (6 to 64 Years) Aged Out No longer eligible b ased on patient's age to complete this topic RSV Immunizations Under 20 Months Aged Out No longer eligible based on patient's age to complete this topic Insurance [facility] Care Teams [employer] Supervisor Relationship Specialty Start Date End Date Luis [place] [address] PCP - General FAMILY PRACTICE 10/01/23
--- NOTE | 2024-11-28 17:42 | PC.NURSE ---
CT notified that pt. is not - partial hysterectomy and there is a green top at bedside.
[2024-11-28] MEDS: HYDROcodone/acetaminophen (*CRX) 5-325 MG TABLET 1 TAB PO (17:46)
--- NOTE | 2024-11-28 17:58 | ED_ITS ---
HPI - Fall General Chief Complaint: Fall Stated Complaint: fell down 12 steps Source: patient Mode of arrival: EMS Limitations: no limitations History of Present Illness HPI Narrative: Patient is a 54 y/o female who presents to the ED via EMS with report of a fall. Patient reports she tripped over a baby gate at her house and fell down 12 stairs. States she fell face first. Hit her face/nose and had significant nose bleed afterwards which has since resolved. Denied LOC. States she remembers the entire fall. C/o pain to her face, neck, R upper arm, L knee. Reports mild dizziness, fogginess. Denies significant back, chest, or abdominal pain. Denies vision changes. Patient is not on any anticoagulation. Related Data Home Medications ?Medication ?Instructions ?Recorded ?Confirmed ?Last Taken ?Type cholecalciferol (vitamin D3) 25 25 mcg PO DAILY 07/01/24 10/13/24 Unknown History mcg (1,000 unit) capsule Allergies Allergy/AdvReac Type Severity Reaction Status Date / Time amoxicillin (From Augmentin) AdvReac Hives Verified 11/28/24 17:36 clavulanic acid (From AdvReac Itching Verified 11/28/24 17:36 Augmentin) Review of Systems 2 Review of Systems: All systems reviewed & are unremarkable except as noted in HPI. All systems reviewed & are unremarkable except as noted in HPI and below PMFSH Past Medical History Medical History Nicotine dependence, cigarettes, uncomplicated Prediabetes Mixed hyperlipidemia Essential (primary) hypertension Recurrent herpes labialis Depression Anxiety GERD (gastroesophageal reflux disease) Surgical History Surgical History History of cholecystectomy 11/17/2015 History of rectal surgery anal fissure repair 2010 History of toe surgery 2005, 2008 History of partial hysterectomy 2006 History of appendectomy 2006 History of nasal surgery 2004 History of endometrial ablation 2003 History of section 1989 Family History Family History Father Diabetes mellitus Heart disease Liver cancer Mother Diabetes mellitus Hypertension Heart disease Breast cancer Depression Grandparent Heart disease Hypertension COPD (chronic obstructive pulmonary disease) Social History Social History Smoking packs per day: 1 Smoking cigarettes per day: 20.0 Smoking status: Current every day smoker Tobacco type: cigarettes Alcohol intake: never Substance use: never Substance use type: does not use Do You Feel Safe in your Home?: Yes Lack of Transportation: No Lack of Food: Never True Current Housing: I Have Housing Concerned About Future Housing: No Difficulty Paying Gas/Electric Bills: No Difficulty Paying for Meds: No Currently Unemployed: No Education: High School Diploma/GED Difficulty w/ Childcare or Family Care: No Living arrangements: with family Occupation/Education: occupation Gender identity (if verbalized by the patient): Female Sexual Orientation (if Verbalized by the Patient): Straight or Heterosexual Exam 2 Narrative: GENERAL: Mildly uncomfortable appearing, obese with BMI of 33.8, non-toxic, in no acute distress. HEAD: Normocephalic. Dried blood to face. No obvious wounds. NECK: C-collar in place. Mild diffuse tenderness throughout neck. No palpable bony deformities. EYES: PERRL/EOMI, conjunctiva clear. No nystagmus. ENT: Dried blood around beti nares. No septal hematoma. No ataxic epistaxis. No trismus or malocclusion. RESPIRATORY: Airway patent, respirations nonlabored. Clear to auscultation bilaterally, no rales, rhonchi, wheezing. CARDIOVASCULAR: Regular rate and rhythm without murmurs, rubs, or gallops. ABDOMINAL: Soft, no appreciable tenderness. Nondistended. Normoactive BS. MUSCULOSKELETAL: Moves all extremities. No gross deformities. Mild tenderness to palpation over distal right upper arm/lateral epicondyle of elbow. Mild tenderness to palpation throughout medial left knee joint space. Minimal swelling noted. No tenderness to palpation over thoracic or lumbar spinal tenderness. No palpable bony deformities or step offs. SKIN: Warm, dry, normal color. NEURO: A&O X3. Speech clear. Cranial nerves II-XII grossly intact. Steady gait. No ataxic movements. No focal deficits. PSYCHIATRIC: Appropriate mood and affect. Normal interaction. Course Vital Signs Vital signs: Vital Signs Temperature 98 F 11/28/24 17:12 Pulse Rate 79 11/28/24 17:12 Respiratory Rate 16 11/28/24 17:12 Blood Pressure 154/86 H 11/28/24 17:12 Pulse Oximetry 98 11/28/24 17:12 Oxygen Delivery Room Air 11/28/24 17:12 Temperature 98 F 11/28/24 17:12 Pulse Rate 72 11/28/24 19:41 Respiratory Rate 18 11/28/24 19:41 Blood Pressure 137/67 11/28/24 19:41 Pulse Oximetry 98 11/28/24 19:41 Oxygen Delivery Room Air 11/28/24 17:12 MDM - Fall MDM Narrative Medical decision making narrative: Patient presented to ED status post mechanical fall down the stairs. Obvious head injury. Denies LOC. She is not on any anticoagulation. Vital signs are stable upon arrival. Patient mildly uncomfortable appearing, but in no acute distress. No gross deformities or neurologic deficits on exam. She does have obvious injury to her face and nose with dried blood. No active epistaxis. She did report epistaxis prior to arrival. No septal hematoma. Trauma workup was initiated. X-ray of right humerus negative. X-ray of left knee negative. CT brain without acute traumatic findings. CT cervical spine negative, showing muscle etiology. CT facial bones showing acute right-sided minimally displaced nasal bone fracture. Consistent with exam and injury. No active epistaxis. No septal hematoma. CT scan of chest/abdomen/pelvis/T and L spine was also negative for acute traumatic findings. No internal injury. Discussed lab and imaging findings with patient. Will refer to ENT for further management of nasal bone fracture. Will discharge with pain medication, muscle relaxers. Patient is in agreement with plan. Feels comfortable going home. Family at bedside. Discussed strict return precautions. She voiced understanding. Discharged in stable condition. Medical Records Attestation: I reviewed the patient's medical records. Lab Data Attestation: I reviewed the patient's lab results. 11/28/24 18:40 Labs: Lab Results 11/28/24 Range/Units 18:40 Creatinine 0.50 L (0.7-1.2) mg/dL Estim Creat Clear Calc 122 ml/min Estimated GFR > 60 (59 - ) Imaging Data Attestation: I personally reviewed and interpreted this imaging study as follows: Radiologist's impression: ITS Impressions Humerus X-Ray 11/28/24 18:17 IMPRESSION: No acute fracture or dislocation. Knee X-Ray 11/28/24 18:17 IMPRESSION: No acute fracture or dislocation. Head CT 11/28/24 19:21 Impression: No acute intracranial hemorrhage or suspicious mass effect. Inflammatory sinus disease. Acute minimally displaced right nasal bone fracture. Head/Cervical Spine/Facial Bones CT 11/28/24 19:30 Impression: Straightening and slight reversal of the normal curvature of the cervical spine, likely muscular in origin. No acute fracture within the cervical spine. Acute minimally displaced fracture of the frontal process of the right nasal bone. Nasal septal deviation with a prominent nasal spur. Inflammatory sinus disease. Chest/Abdomen/Pelvis/Spine CT 11/28/24 19:44 IMPRESSION: No findings within the chest, abdomen, pelvis, thoracic or lumbar spines to suggest the presence of acute traumatic injury, as detailed above. Discharge Plan Discharge Clinical Impression: Fall down stairs Qualifiers: Encounter type: initial encounter Qualified Code(s): W10.8XXA - Fall (on) (from) other stairs and steps, initial encounter Fracture of nasal bone Qualifiers: Encounter type: initial encounter Fracture type: closed Qualified Code(s): S 02.2XXA - Fracture of nasal bones, initial encounter for closed fracture Patient Disposition: Home, Self-Care Condition: Stable Instructions: Antibiotic Form, Cervical Strain (ED), Nasal Fracture (ED) Additional Instructions: You were diagnosed with a right-sided nasal bone fracture. Avoid blowing nose over the next several days. Ice to face/nose. Follow up with ENT for further evaluation. Continue Tylenol and Ibuprofen as needed for pain. [place] as needed for more severe pain. This does also contain Tylenol, sees caution with dosing. You may use ice/heat, lidocaine patches to area of pain. Take muscle relaxers as needed and prescribed. Recommend taking these at night as they may cause sedation. Do not drive, operate heavy machinery, drink alcohol while on muscle relaxers as this may cause further sedation. Use caution when taking muscle relaxers and [place] together as these can both cause sedation. Follow-up with your primary care doctor for further evaluation if needed. Return to the ED if you experience worsening or severe pain, recurrent injury, numbness in arms or legs, chest pain, difficulty breathing, severe dizziness, passing out, persistent nosebleeds, going to the bathroom without meaning to, unable to keep down food or drink, or any other symptoms of concern. Patient Language: Bulgarian Prescriptions: New hydrocodone-acetaminophen 5-325 mg tablet 1 tablet PO Q6H PRN (Reason: pain) Qty: 15 0RF cyclobenzaprine 5 mg tablet 5 mg PO TID PRN (Reason: muscle spasm) Qty: 15 0RF lidocaine 5 % adhesive patch,medicated 1 patch topical DAILY Qty: 15 0RF Rx Instructions: leave on most painful area for up to 12 hrs No Action cholecalciferol (vitamin D3) 25 mcg (1,000 unit) capsule 25 mcg PO DAILY losartan-hydrochlorothiazide 50-12.5 mg tablet 1 tablet PO DAILY Qty: 90 1RF celecoxib 200 mg capsule 200 mg PO DAILY Qty: 90 1RF sertraline 100 mg tablet 150 mg PO DAILY 90 Days Qty: 135 1RF omeprazole 20 mg capsule,delayed release(DR/EC) See Rx Instructions .ROUTE .COMPLEX Qty: 90 3RF Dose Instruction: TAKE 1 CAPSULE BY MOUTH ONCE A DAY 30 MINUTES BEFORE MORNING MEAL Rx Instructions: TAKE 1 CAPSULE BY MOUTH ONCE A DAY 30 MINUTES BEFORE MORNING MEAL zolpidem 10 mg tablet 10 mg PO QHS PRN (Reason: insomnia) Qty: 30 2RF estradiol 2 mg tablet 2 mg PO DAILY Qty: 90 1RF Follow-up/Referrals: Ryley Ellington MD [Physician] - (ENT) Luis Antonio Cruz MD [Primary Care Provider] - Time of Disposition: 20:25
[2024-11-28 18:42] LABS: Estimated CRCL calculation 122 ml/min; Estimated Glomerular Filt Rate > 60
[2024-11-28 19:41] VITALS: BP 137/67; PULSE 72; RESP 18; O2SAT 98
[2024-11-28] MEDS: KETOROLAC 30 MG/ML VIAL (*BKC) IV PUSH (20:33)
== END 2024-11-28 20:46 | disposition home or self-care (01) ==
PROVIDERS: Emergency Provider Physician Assistant; PCP Family Medicine
DX: S02.2XXA Fracture of nasal bones, initial encounter for closed fracture (principal); I10 Essential (primary) hypertension; E78.2 Mixed hyperlipidemia; K21.9 Gastro-esophageal reflux disease without esophagitis; R73.03 Prediabetes; F17.210 Nicotine dependence, cigarettes, uncomplicated; Z90.49 Acquired absence of other specified parts of digestive tract; Z90.711 Acquired absence of uterus with remaining cervical stump; J32.9 Chronic sinusitis, unspecified; Z79.899 Other long term (current) drug therapy; Z79.890 Hormone replacement therapy; W10.9XXA Fall (on) (from) unspecified stairs and steps, initial encounter
CPT/HCPCS: 70450; 70486; 71260; 72125; 72129; 72132; 73060; 73564; 74177; 96374; 99284; A9270; J1885; Q9967